=== PATIENT | male | born 1955 | race Caucasian/White ===

== ENCOUNTER → 2018-04-06 | Day surgery (SDC) | payer OTHER ==
[~2018-04-06] VITALS: Ht 190.5 cm; Wt 113.4 kg
[~2018-04-06] MED LIST: CIPRO500 M1 PO; FLOMAX0.4 M1 PO; IBUPROFEN800 M1 PO; PERCOCET 5-3251 EACH PO; SENOKOT8.6 M2 PO
--- NOTE | 2018-04-06 08:08 | Operative Report ---
Operative/Inv Procedure Report Surgery Date: 04/06/18 Name of Procedure: left ESWL Pre-Operative Diagnosis: left proximal ureteral stone 7mm 350HU Post-Operative Diagnosis: same Estimated Blood Loss: scant Surgeon/Pocketed Spring Machine Operator: Leia Cyr MD Anesthesia: local monitored anesthesi Complications: none Condition: stable Operative Indication: left renal colic with hydronephrosis Operative/Procedure Note Note: 63yo male with a history kidney stones. He has had right renal colic and was found to have two proximal ureteral stones. He wished to have this treated with surgery. Options of ESWL and URS with laser lithotripsy were given. He wished to proceed with ESWL. He was given the risks, benefits and alternatives. All questions were answered. He was consented. Patient was taken to the operating room and placed on the OR table in the supine position. He has no history of UTIS so no IV antibiotics were given. Timeout was performed. He was placed in the optimal position and IV sedation was initiated. The proximal stone was difficult to localize but was seen at L2 on flouroscopy view faintly after IV omnipaque. Shockwaves were started. A total of 2500 shocks were delivered starting at power 1-10 for 100 shocks, then power 11-15 till 200 shocks, power of 16-20 for 201-350 shocks and finally the remainder of the shocks at power 20 till 2500 shocks reached. The stones appeared to be changed visibly after the treatment. Patient tolerated the procedure well. He was transferred to the recovery room in stable condition. Findings: left proximal ureteral stone 7mm well fragmented Discharge Disposition: Same Day Admissions
== END ==
LOC: STS 03:47 → EDSTATUS 07:00 → STS 07:00
DX: N20.1 Calculus of ureter (principal); Z87.442 Personal history of urinary calculi; R31.29 Other microscopic hematuria; I10 Essential (primary) hypertension
CPT/HCPCS: J2250